=== PATIENT | female | born 1970 | race Caucasian/White ===

== ENCOUNTER 2017-01-16 19:35 | Emergency (ER) | payer OTHER ==
[2017-01-16 19:40] VITALS: BP 144/87; PULSE 77; TEMP 98.6; BMI 23.4
--- NOTE | 2017-01-16 20:16 | PDOC ---
History of Present Illness - General History Source: Patient Exam Limitations: No Limitations - History of Present Illness Initial Comments: 01/16/17 23:41 The patient is a 46 year female with no significant past medical history, who presents to the ED with worsening abdominal pain. She describes the pain as burning and radiating to the back. Patient states the abdominal pain first began 3 months ago when she was at [employer] lifting boxes. Patient states the pain was intermittent before but now constant for 3 days and worsens with movement. She does not note any masses or bulges but states her abdomen is distended. Last BM today was normal, is passing flatus. Patient states the pain is localized over her incision line and umbulicus. She states she has been taking tylenol but with no alleviation. Patient denies fever, chills, nausea, vomiting, diarrhea. Patient denies dysuria , frequency, hematuria. Denies flank pain. Denies CP, SOB, focal weakness or numbness. She states she saw her CREDIT SPECIALIST and PCP. Both did urine analysis which came back normal. PSH: PMD: Dr. Ponce <Fernando Rivas - Last Filed: 01/17/17 00:44> <Carlie Castillo - Last Filed: 01/17/17 02:14> - General Chief Complaint: Pain Stated Complaint: PAIN Past History <Fernando Rivas - Last Filed: 01/17/17 00:44> - Suicide/Smoking/Psychosocial Hx Smoking History: Never smoked <Carlie Castillo - Last Filed: 01/17/17 02:14> - Past Medical History Allergies/Adverse Reactions: Allergies Allergy/AdvReac Type Severity Reaction Status Date / Time No Known Allergies Allergy Verified 01/16/17 19:38 Home Medications: Ambulatory Orders Naproxen [Naprosyn -] 500 mg PO BID PRN #14 tablet 01/17/17 Review of Systems - Review of Systems Able to Perform ROS?: Yes Comments:: 01/16/17 23:42 GENERAL/CONSTITUTIONAL: No fever or chills. No weakness. HEAD, EYES, EARS, NOSE AND THROAT: No change in vision. No ear pain or discharge. No sore throat. CARDIOVASCULAR: No chest pain or shortness of breath. RESPIRATORY: No cough, wheezing, or hemoptysis. ABDOMINAL: +burning abdominal pain radiating to the back. GASTROINTESTINAL: No nausea, vomiting, diarrhea or constipation. GENITOURINARY: No dysuria, frequency, or change in urination. MUSCULOSKELETAL: No joint or muscle swelling or pain. No neck or back pain. SKIN: No rash NEUROLOGIC: No headache, vertigo, loss of consciousness, or change in strength/ sensation. ENDOCRINE: No increased thirst. No abnormal weight change. HEMATOLOGIC/LYMPHATIC: No anemia, easy bleeding, or history of blood clots. ALLERGIC/IMMUNOLOGIC: No hives or skin allergy. <Fernando Rivas - Last Filed: 01/17/17 00:44> *Physical Exam - Vital Signs Last Vital Signs Temp Pulse Resp BP Pulse Ox 98.6 F 77 18 144/87 99 01/16/17 19:38 01/16/17 19:38 01/16/17 19:38 01/16/17 19:38 01/16/17 19:38 - Physical Exam Comments: 01/16/17 23:42 GENERAL: Awake, alert, and fully oriented, in no acute distress HEAD: No signs of trauma EYES: PERRLA, EOMI, sclera anicteric, conjunctiva clear ENT: Auricles normal inspection, hearing grossly normal, nares patent, oropharynx clear without exudates. Moist mucosa NECK: Normal ROM, supple, no lymphadenopathy, JVD, or masses LUNGS: Breath sounds equal, clear to auscultation bilaterally. No wheezes, and no crackles HEART: Regular rate and rhythm, normal S1 and S2, no murmurs, rubs or gallops ABDOMEN: Distended but soft. Suprapubic and periumbilical tenderness. normoactive bowel sounds. No guarding, no rebound. No masses. No CVAT. BACK: No CVA tenderness. EXTREMITIES: Normal range of motion, no edema. No clubbing or cyanosis. No cords, erythema, or tenderness NEUROLOGICAL: Cranial nerves II through XII grossly intact. Normal speech, normal gait SKIN: Warm, Dry, normal turgor, no rashes or lesions noted. <Fernando Rivas - Last Filed: 01/17/17 00:44> - Vital Signs Last Vital Signs Temp Pulse Resp BP Pulse Ox 98.6 F 77 18 144/87 99 01/16/17 19:38 01/16/17 19:38 01/16/17 19:38 01/16/17 19:38 01/16/17 19:38 <Carlie Castillo - Last Filed: 01/17/17 02:14> Heart Score/ECG Review - ECG Intrepretation Comment:: 01/17/17 00:29 Normal sinus rate of 64. normal axis and intervals. No ST elevations. No T wave inversions. <Ike Rivasit - Last Filed: 01/17/17 00:44> ED Treatment Course - LABORATORY CBC & Chemistry Diagram: 01/16/17 22:10 01/16/17 22:10 - ADDITIONAL ORDERS Additional order review: Laboratory Results 01/16/17 01/16/17 01/16/17 22:30 22:30 22:10 Sodium Potassium Chloride Carbon Dioxide Anion Gap BUN Creatinine Creat Clearance w eGFR Random Glucose Lactic Acid 0.5 Calcium Magnesium Total Bilirubin AST ALT Alkaline Phosphatase Total Protein Albumin Lipase Urine Color Straw Urine Appearance Clear Urine pH 6.0 Urine Protein Negative Urine Glucose (UA) Negative Urine Ketones Negative Urine Blood Negative Urine Nitrite Negative Urine Bilirubin Negative Urine Urobilinogen Negative Urine HCG, Qual Negative 01/16/17 22:10 Sodium 137 Potassium 4.4 Chloride 104 Carbon Dioxide 30 Anion Gap 3 L BUN 10 Creatinine 0.5 L D Creat Clearance w eGFR > 60 Random Glucose 86 Lactic Acid Calcium 8.8 Magnesium 2.3 Total Bilirubin 0.7 AST 27 ALT 45 Alkaline Phosphatase 82 Total Protein 7.3 Albumin 3.9 Lipase 139 Urine Color Urine Appearance Urine pH Urine Protein Urine Glucose (UA) Urine Ketones Urine Blood Urine Nitrite Urine Bilirubin Urine Urobilinogen Urine HCG, Qual 01/16/17 22:10 RBC 4.41 MCV 89.2 MCHC 33.7 RDW 12.8 MPV 8.9 Neutrophils % 61.4 Lymphocytes % 29.8 Monocytes % 6.7 Eosinophils % 1.8 Basophils % 0.3 - RADIOLOGY Radiology Studies Ordered: 01/17/17 00:45 EXAM: CT ABDOMEN AND PELVIS HISTORY:Lower abdominal pain COMPARISON: None. IMPRESSION: Mesenteric adenitis THIS DOCUMENT HAS BEEN ELECTRONICALLY SIGNED Kirby Lara MD 01/17/2017 00:34 EST - Medications Given in the ED: ED Medications Discontinued Medications Generic Name Dose Route Start Last Admin Trade Name Freq PRN Reason Stop Dose Admin Morphine Sulfate 2 mg 01/16/17 23:03 01/16/17 23:36 Morphine Injection - IVPUSH 01/16/17 23:04 2 mg ONCE ONE Administration <Fernando Rivas - Last Filed: 01/17/17 00:44> - LABORATORY CBC & Chemistry Diagram: 01/16/17 22:10 01/16/17 22:10 <Carlie Castillo - Last Filed: 01/17/17 02:14> Medical Decision Making - Medical Decision Making 01/16/17 23:26 38-year-old female with no significant past medical history presents with 3 months of intermittent lower abdominal pain now constant over the last 3 days. Vitals are unremarkable. Exam with tenderness to palpation over the suprapubic and periumbilical abdomen with mild distention. Differential includes but is not limited to hernia versus UTI versus appendicitis. -labs -UPT -UA -CT -pain control -reassess 01/17/17 00:57 Labs unremarkable. UA negative for infection. Repeat abd exam with no ttp, no distention, rebound or guarding. CT scan reveals mesenteric adenitis and some enlarged lymph nodes. I discussed this finding with the patient and that while this may be the reason for the patient's pain, it is not usually clear what causes it. I also discussed the possibility that these lymph nodes could be cancerous and that she must follow-up with her primary doctor for further work up. I discussed the physical exam findings, ancillary test results and final diagnoses with the patient. I answered all of the patient's questions. The patient was satisfied with the care received and felt comfortable with the discharge plan and treatment plan. The patient will call their primary care physician within 24 hours to arrange follow-up and will return to the Emergency Department with any new, persistent or worsening symptoms. <Carlie Castillo - Last Filed: 01/17/17 02:14> *DC/Admit/Observation/Transfer - Attestations Scribe Attestion: 01/16/17 23:42 Documentation prepared by Fernando Rivas, acting as medical health researcher for Carlie Castillo MD, . <Fernando Rivas - Last Filed: 01/17/17 00:44> - Discharge Dispostion Admit: No - Attestations Physician Attestion: 01/17/17 01:01 I, Dr. Carlie Castillo MD, attest that this document has been prepared under my direction and personally reviewed by me in its entirety. I further attest, that it accurately reflects all work, treatment, procedures and medical decision -making performed by me. <Carlie Castillo - Last Filed: 01/17/17 02:14> Diagnosis at time of Disposition: Abdominal pain - Discharge Dispostion Disposition: HOME Condition at time of disposition: Stable - Referrals Referrals: Ivania Vargas MD [Primary Care Provider] - - Patient Instructions Printed Discharge Instructions: DI for Abdominal Pain-Adult Additional Instructions: Please follow up with Dr. Ponce within [address] scan showed some inflammed/enlarged lymph nodes. While these may be a result of a recent infection, there is a chance that these may be a sign of cancer. You must follow up with Dr. Ponce for further evaluation of these lymph nodes. Return to the emergency department immediately for any new or concerning symptoms or if your symptoms get worse. Thank you for coming to the Emergency Department today for your care. It was a pleasure to see you today. Please note that your evaluation is INCOMPLETE until you follow-up with your doctor.
[2017-01-16 22:20] LABS: BASOPHIL 0.3 % (0-2.0); EOSINOPHIL 1.8 % (0-4.5); MCH 30.1 pg (25.7-33.7); MCHC 33.7 g/dl (32.0-36.0); MEAN CELL VOLUME 89.2 fl (80-96); MEAN PLT VOLUME 8.9 fl (7.5-11.1); NEUTROPHILS 61.4 % (42.8-82.8); PLATELET COUNT 219 K/MM3 (134-434); RDW 12.8 % (11.6-15.6); WHITE BLOOD COUNT 8.1 K/mm3 (4.0-10.0)
[2017-01-16 22:44] LABS: URINE APPEARANCE CLEAR; URINE BILIRUBIN NEGATIVE (NEGATIVE); URINE BLOOD NEGATIVE (NEGATIVE); URINE COLOR STRAW; URINE GLUCOSE (UA) NEGATIVE (NEGATIVE); URINE KETONE NEGATIVE (NEGATIVE); URINE LEUK ESTERASE NEGATIVE (NEGATIVE); URINE NITRITE NEGATIVE (NEGATIVE); URINE PROTEIN NEGATIVE (NEGATIVE); URINE UROBILINOGEN NEGATIVE mg/dL (0.2-1.0)
[2017-01-16 22:44] LABS: ALBUMIN 3.9 g/dl (3.4-5.0); ALK PHOS 82 U/L (45-117); ANION GAP 3 (8-16); BILIRUBIN,TOTAL 0.7 mg/dL (0.2-1.0); CALCIUM 8.8 mg/dL (8.5-10.1); CO2 30 mmol/L (21-32); CREATININE 0.5 mg/dL (0.55-1.02); GLUCOSE,RANDOM 86 mg/dL (74-106); SGPT/ALT 45 U/L (12-78); TOT PROT 7.3 g/dl (6.4-8.2)
[2017-01-16 22:45] LABS: MAGNESIUM 2.3 mg/dL (1.8-2.4); SGOT/AST 27 U/L (15-37)
[2017-01-16] MEDS ORDERED: morphine CARPU-JECT 2 MG/1 ML DISP.SYRIN IVPUSH ONE (23:03)
[2017-01-16] MEDS ORDERED: morphine CARPU-JECT 4 MG/1 ML DISP.SYRIN ONE (23:33)
--- NOTE | 2017-01-17 10:58 | EKG ---
Test Reason : Blood Pressure : / mmHG Vent. Rate : 064 BPM Atrial Rate : 064 BPM P-R Int : 136 ms QRS Dur : 084 ms QT Int : 408 ms P-R-T Axes : 040 040 035 degrees QTc Int : 420 ms NORMAL SINUS RHYTHM LOW VOLTAGE QRS BORDERLINE ECG WHEN COMPARED WITH ECG OF 04-FEB-2008 10:59, NO SIGNIFICANT CHANGE WAS FOUND Confirmed by PRABHU RENAE MD ([id number]) on 01/17/2017 10:58:12 AM Referred By: Confirmed By:PRABHU RENAE MD
== END 2017-01-17 01:15 | disposition home or self-care (01) ==
LOC: JER 19:35
PROC: 3E033NZ Introduction of Analgesics, Hypnotics, Sedatives into Peripheral Vein, Percutaneous Approach (ICD-10-PCS; principal; 2017-01-16)
DX: R10.84 Generalized abdominal pain (principal)
CPT/HCPCS: 36415; 74176-TC; 80053; 81003; 83605; 83690; 83735; 84703; 85025; 87086; 93005; 93010; 96374; 99282-25

== ENCOUNTER 2021-09-21 09:14 | Emergency (ER) | payer OTHER ==
[2021-09-21 09:20] VITALS: BP 144/94; PULSE 100; TEMP 97.8; BMI 23.8
== END 2021-09-21 10:48 | disposition home or self-care (01) ==
LOC: FER 09:14
DX: R30.0 Dysuria (principal)
CPT/HCPCS: 81003; 87086; 99283-25